=== PATIENT | male | born 1965 | race Caucasian/White ===

== ENCOUNTER 2021-11-19 11:55 | Emergency (ER) | payer OTHER ==
[2021-11-19] MEDS ORDERED: Proparacaine 0.5% Ophth Soln 15 ML Bottle EYELF ONE (13:15)
== END 2021-11-19 13:56 | disposition home or self-care (01) ==
LOC: JP.ED 11:55
DX: H10.32 Unspecified acute conjunctivitis, left eye (principal); K13.0 Diseases of lips; I10 Essential (primary) hypertension; Z79.899 Other long term (current) drug therapy
CPT/HCPCS: 99283; A9270

== ENCOUNTER 2024-01-27 07:48 | Day surgery (SDC) | payer BC, OTHER ==
[~2024-01-27 07:48] MED LIST: Midazolam 1 MG/ML 2 ML SDV ONE; Propofol 200 MG/20 ML SDV ONE; fentaNYL 50 MCG/ML SDV ONE
[2024-01-27] MEDS: Lactated Ringers 1,000 ML IV SCH (08:26)
[2024-01-27] MEDS ORDERED: Propofol 200 MG/20 ML SDV ONE (10:18)
== END 2024-01-27 11:36 | disposition home or self-care (01) ==
LOC: JP.SDS 07:48
PROVIDERS: ATTEND Surgery
DX: K57.31 Diverticulosis of large intestine without perforation or abscess with bleeding (principal); K64.9 Unspecified hemorrhoids; I10 Essential (primary) hypertension; G47.33 Obstructive sleep apnea (adult) (pediatric); F32.A Depression, unspecified
CPT/HCPCS: 45398; J2250; J2704; J3010; J7120